=== PATIENT | female | born 1975 | race Caucasian/White ===

== ENCOUNTER 2016-12-15 17:36 | Emergency (ER) | payer MEDICAID ==
[~2016-12-15 17:36] MED LIST: ALLEGRA180 M1; COU5 PO; METFORMIN500 MG PO
[2016-12-15 20:38] VITALS: BP 125/77
== END 2016-12-15 20:38 | disposition home or self-care (01) ==
LOC: ED 17:36
DX: M54.6 Pain in thoracic spine (principal); E11.9 Type 2 diabetes mellitus without complications
CPT/HCPCS: J1885

== ENCOUNTER 2019-12-16 19:47 | Emergency (ER) | payer OTHER, MEDICAID ==
[~2019-12-16] VITALS: Ht 167.6 cm; Wt 82.1 kg
[2019-12-16 19:52] VITALS: Ht 167.6 cm; Wt 82.1 kg
[2019-12-16 21:11] VITALS: BP 131/71
== END 2019-12-16 21:12 | disposition home or self-care (01) ==
LOC: ED 19:47
DX: M54.5 Low back pain (principal); E11.9 Type 2 diabetes mellitus without complications
CPT/HCPCS: J1885